=== PATIENT | female | born 1985 | race Caucasian/White ===

== ENCOUNTER 2018-02-14 18:36 | Emergency (ER) | payer OTHER ==
[2018-02-14] MEDS: IBUPROFEN 600 MG TAB PO (19:10)
== END 2018-02-14 20:37 | disposition home or self-care (01) ==
LOC: FTE 18:36
DX: S89.92XA Unspecified injury of left lower leg, initial encounter (principal); Y04.0XXA Assault by unarmed brawl or fight, initial encounter
CPT/HCPCS: 73562; 99283-25